=== PATIENT | male | born 1975 | race Caucasian/White ===

== ENCOUNTER 2019-08-10 23:06 | Emergency (ER) | payer OTHER ==
--- NOTE | 2019-08-11 01:19 | ER ---
Nurse's Notes [facility] Name: Bernard Randle Age: 43 yrs Sex: Male : 1975 Arrival Date: 08/10/2019 Time: 23:07 Bed 10 Private MD: Diagnosis: Cellulitis of left lower limb-heel Presentation: 08/10 23:43 Presenting complaint: Patient states: I had metal rods placed in my left foot approx 2 tl1 months ago after falling out of tree and shattering my ankle and foot. My foot is swollen and there is puss coming out of the back of my foot. I was suppose to have them removed but I am unable to make it to [place]. Transition of care: patient was not received from another setting of care. Onset of symptoms was August 10, 2019. Risk Assessment: Do you want to hurt yourself or someone else? Patient reports no desire to harm self or others. Initial Sepsis Screen: Does the patient meet any 2 criteria? No. Patient's initial sepsis screen is negative. Does the patient have a suspected source of infection? No. Patient's initial sepsis screen is negative. Care prior to arrival: None. 23:43 Method Of Arrival: Ambulatory tl1 23:49 Acuity: NESS 4 tl1 Historical: - Allergies: 23:47 No Known Allergies; tl1 - Home Meds: 23:47 None [Active]; tl1 - PMHx: 23:47 None; tl1 - PSHx: 23:47 foot surgery; tl1 - Immunization history:: Adult Immunizations unknown. - Social history:: Smoking status: Patient uses tobacco products, smokes one pack cigarettes per day. Patient uses alcohol, occasionally. Patient/guardian denies using street drugs. - Ebola Screening: : Patient negative for fever greater than or equal to 101.5 degrees Fahrenheit, and additional compatible Ebola Virus Disease symptoms Patient denies exposure to infectious person Patient denies travel to an Ebola-affected area in the 21 days before illness onset. Screenin/26 00:05 Abuse screen: Denies threats or abuse. Nutritional screening: No deficits noted. bb Tuberculosis screening: No symptoms or risk factors identified. Fall Risk None identified. Assessment: 00:05 General: Appears in no apparent distress. uncomfortable, Behavior is calm, cooperative. bb Pain: Complains of pain in right foot and heel of right foot. Neuro: Level of Consciousness is awake, alert, obeys commands, Oriented to person, place, time, situation. Cardiovascular: No deficits noted. Respiratory: Respiratory effort is even, unlabored, Respiratory pattern is regular. GI: No deficits noted. No signs and/or symptoms were reported involving the gastrointestinal system. Derm: Skin is pink, warm \T\ dry. Musculoskeletal: Swelling present in right foot Reports pain in right foot. 01:52 Reassessment: Patient is alert, oriented x 3, equal unlabored respirations, skin bb warm/dry/pink. pt verbalized understanding of and agrees to plan of care discharge instructions given. Vital Signs: 08/10 23:47 BP 119 / 84; Pulse 92; Resp 17; Temp 97.7; Pulse Ox 100% ; Weight 90.72 kg; Height 5 tl1 ft. 11 in. (180.34 cm); Pain 10/10; 08/11 01:54 BP 111 / 68; Pulse 82; Resp 14 S; Temp 97.5(O); Pulse Ox 100% on R/A; bb 08/10 23:47 Body Mass Index 27.89 (90.72 kg, 180.34 cm) tl1 ED Course: 08/10 23:07 Patient arrived in ED. ds1 23:45 Triage completed. tl1 23:49 Arm band placed on right wrist. tl1 23:58 Eagle Sykes MD is Attending Physician. [facility] 08/11 00:05 Patient has correct armband on for positive identification. Call light in reach. bb 00:38 Foot Left 3 View XRAY In Process Unspecified. EDMS 00:44 Sandra Mayo FNP-C is PHCP. snw 01:30 Wound care: to cellulitis located on left heel was cleaned with Betadine, dressed with bb Neosporin, non adherant pad covered with tegaderm and an tammy wrap. 01:52 No provider procedures requiring assistance completed. Patient did not have IV access bb during this emergency room visit. Administered Medications: 01:20 Drug: Bactrim (160 mg-800 mg (DS) 1 tablet Route: PO; bb 01:54 Follow up: Response: No adverse reaction bb 01:30 Drug: Clindamycin 600 mg {Note: split dose right and left gluteus.} Route: IM; Site: bb left gluteus; 01:54 Follow up: Response: No adverse reaction jasmin Outcome: 01:02 Discharge ordered by . lorri 01:55 Discharged to home ambulatory. jasmin 01:55 Condition: stable 01:55 Discharge instructions given to patient, Instructed on discharge instructions, follow up and referral plans. medication usage, wound care, Demonstrated understanding of instructions, follow-up care, medications, wound care. 01:56 Patient left the ED. jasmin Addendum: 08/23/2019 12:06 Addendum: Culture Results: Positive wound culture. Bacteria is resistant to, has i w intermediate sensitivity, or is not tested against prescribed antibiotics. Report given to GENARO for further evaluation and then to immigration paralegal for follow up with patient. Phone call Attempt #1 symptoms not improving, called in Levaquin 750 mg PO daily X 10 days, no refills, per CRISTÓBAL Narvaez. Signatures: Dispatcher [employer] EDMS Eagle Sykes MD MD cha Therrien, Shelly, [employer] SENIOR OFFICER-C [employer] SENIOR OFFICER-CsnGillian Gonzales ds1 Sherine Das, RN RN Vane Griffin, BRIEN RN iw Lisa Cortes RN RN tl1 Corrections: (The following items were deleted from the chart) 08/10 23:46 23:43 Presenting complaint: Patient states: I had metal rods placed in my left foot tl1 approx 2 months ago after falling out of tree and shattering my ankle and foot tl1 23:49 23:43 Acuity: NESS 3 tl1 tl1
--- NOTE | 2019-08-11 01:20 | EDPHYS ---
Physician Documentation [facility] Name: Bernard Randle Age: 43 yrs Sex: Male : 1975 Arrival Date: 08/10/2019 Time: 23:07 Bed 10 Private MD: ED Physician Eagle Sykes HPI: 08/11 00:57 This 43 yrs old Male presents to ER via Ambulatory with complaints of Foot snw Pain - L. 00:59 The patient presents with swelling, wound, wants pins removed from left foot. The snw complaints affect the left heel. Context: The problem was sustained pins placed in [place] per unknown surgeon s/p calcaneus fracture, the patient can partially bear weight, the patient is able to ambulate. Onset: The symptoms/episode began/occurred gradually. Associated signs and symptoms: Pertinent positives: exudate from left heel. Severity of symptoms: At their worst the symptoms were mild, moderate. It is unknown whether or not the patient has had similar symptoms in the past. It is unknown whether or not the patient has recently seen a physician. Historical: - Allergies: 08/10 23:47 No Known Allergies; tl1 - Home Meds: 23:47 None [Active]; tl1 - PMHx: 23:47 None; tl1 - PSHx: 23:47 foot surgery; tl1 - Immunization history:: Adult Immunizations unknown. - Social history:: Smoking status: Patient uses tobacco products, smokes one pack cigarettes per day. Patient uses alcohol, occasionally. Patient/guardian denies using street drugs. - Ebola Screening: : Patient negative for fever greater than or equal to 101.5 degrees Fahrenheit, and additional compatible Ebola Virus Disease symptoms Patient denies exposure to infectious person Patient denies travel to an Ebola-affected area in the 21 days before illness onset. ROS: 08/11 00:56 Constitutional: Negative for fever, chills, and weight loss, Eyes: Negative for injury, snw pain, redness, and discharge, ENT: Negative for injury, pain, and discharge, Neck: Negative for injury, pain, and swelling, Cardiovascular: Negative for chest pain, palpitations, and edema, Respiratory: Negative for shortness of breath, cough, wheezing, and pleuritic chest pain, Abdomen/GI: Negative for abdominal pain, nausea, vomiting, diarrhea, and constipation, Back: Negative for injury and pain, : Negative for injury, bleeding, discharge, and swelling, MS/Extremity: Negative for injury and deformity, Neuro: Negative for headache, weakness, numbness, tingling, and seizure. Skin: Positive for pus coming from left heel. Exam: 00:52 Constitutional: This is a well developed, well nourished patient who is awake, alert, snw and in no acute distress. Head/Face: Normocephalic, atraumatic. Eyes: Pupils equal round and reactive to light, extra-ocular motions intact. Lids and lashes normal. Conjunctiva and sclera are non-icteric and not injected. Cornea within normal limits. Periorbital areas with no swelling, redness, or edema. ENT: Nares patent. No nasal discharge, no septal abnormalities noted. Tympanic membranes are normal and external auditory canals are clear. Oropharynx with no redness, swelling, or masses, exudates, or evidence of obstruction, uvula midline. Mucous membranes moist. Neck: Trachea midline, no thyromegaly or masses palpated, and no cervical lymphadenopathy. Supple, full range of motion without nuchal rigidity, or vertebral point tenderness. No Meningismus. Chest/axilla: Normal chest wall appearance and motion. Nontender with no deformity. No lesions are appreciated. Cardiovascular: Regular rate and rhythm with a normal S1 and S2. No gallops, murmurs, or rubs. Normal PMI, no JVD. No pulse deficits. Respiratory: Lungs have equal breath sounds bilaterally, clear to auscultation and percussion. No rales, rhonchi or wheezes noted. No increased work of breathing, no retractions or nasal flaring. Abdomen/GI: Soft, non-tender, with normal bowel sounds. No distension or tympany. No guarding or rebound. No evidence of tenderness throughout. Back: No spinal tenderness. No costovertebral tenderness. Full range of motion. Neuro: Awake and alert, GCS 15, oriented to person, place, time, and situation. Cranial nerves II-XII grossly intact. Motor strength 5/5 in all extremities. Sensory grossly intact. Cerebellar exam normal. Normal gait. Psych: Awake, alert, with orientation to person, place and time. Behavior, mood, and affect are within normal limits. 00:52 Skin: Appearance: normal except for affected area, Wound recheck: pins placed in calcaneus in [place] post fracture. Pt states 5 have been removed. Supposed to have last two removed but did not return, posterior left heel with small open wound, + exudate. No air noted on x-ray films. 00:56 Musculoskeletal/extremity: Extremities: grossly normal except: noted in the left snw Achilles, medial aspect of left heel, heel of left foot and dorsum of left foot: decreased ROM, swelling, Circulation is intact in all extremities. Sensation intact. Vital Signs: 08/10 23:47 BP 119 / 84; Pulse 92; Resp 17; Temp 97.7; Pulse Ox 100% ; Weight 90.72 kg; Height 5 tl1 ft. 11 in. (180.34 cm); Pain 05/26; 08/11 01:54 BP 111 / 68; Pulse 82; Resp 14 S; Temp 97.5(O); Pulse Ox 100% on R/A; bb 08/10 23:47 Body Mass Index 27.89 (90.72 kg, 180.34 cm) tl1 MDM: 08/10 23:58 Patient medically screened. [facility] 08/11 01:04 Data reviewed: vital signs, nurses notes. Data interpreted: Pulse oximetry: on room air snw is 100 %. Interpretation: normal. Counseling: I had a detailed discussion with the patient and/or guardian regarding: the historical points, exam findings, and any diagnostic results supporting the discharge/admit diagnosis, the presence of at least one elevated blood pressure reading (>120/80) during this emergency department visit, radiology results, the need for outpatient follow up, to return to the emergency department if symptoms worsen or persist or if there are any questions or concerns that arise at home. Special discussion: I discussed in detail with the patient the higher chance of wound infection based on his presenting history. Based on the history and exam findings, there is no indication for further emergent testing or inpatient evaluation. I discussed with the patient/guardian the need to see the general surgeon for further evaluation of the symptoms. I discussed with the patient/guardian the need to see the orthopedic surgeon for further evaluation of the symptoms. 08/11 00:55 Order name: Wound Culture snw 08/11 00:01 Order name: Foot Left 3 View XRAY cholo 08/11 00:55 Order name: Wound Care; Complete Time: 01:52 snw 08/11 00:55 Order name: Wound dressing; Complete Time: 01:52 snw Administered Medications: 01:20 Drug: Bactrim (160 mg-800 mg (DS) 1 tablet Route: PO; bb 01:54 Follow up: Response: No adverse reaction 01:30 Drug: Clindamycin 600 mg {Note: split dose right and left gluteus.} Route: IM; Site: bb left gluteus; 01:54 Follow up: Response: No adverse reaction bb Disposition: 07:53 Co-signature as Attending Physician, Eagle Sykes MD I agree with the assessment and [facility] plan of care. Disposition: 08/11/19 01:02 Discharged to Home. Impression: Cellulitis of left lower limb - heel. - Condition is Stable. - Discharge Instructions: Cellulitis, Adult, Heat Therapy. - Prescriptions for Clindamycin HCl 300 mg Oral Capsule - take 1 capsule by ORAL route every 6 hours for 10 days; 40 capsule. Diclofenac Sodium 75 mg Oral Tablet Sustained Release - take 1 tablet by ORAL route 2 times per day; 30 tablet. - Medication Reconciliation Form, Thank You Letter, Antibiotic Education, Prescription Opioid Use form. - Follow up: Private Physician; When: 2 - 3 days; Reason: Recheck today's complaints, Continuance of care, Re-evaluation by your physician. Follow up: Emergency Department; When: As needed; Reason: Worsening of condition. Signatures: Dispatcher [employer] [facility] Eagle Sykes MD MD cha Therrien, Shelly, KEYMODULE ASSEMBLY MACHINE TENDER-C [employer] ASSEMBLY MACHINE TENDER-Csnw Sherine Das RN RN Lisa Akers RN RN tl1 Corrections: (The following items were deleted from the chart) 00:57 00:52 Constitutional: This is a well developed, well nourished patient who is awake, snw alert, and in no acute distress. Head/Face: Normocephalic, atraumatic. Eyes: Pupils equal round and reactive to light, extra-ocular motions intact. Lids and lashes normal. Conjunctiva and sclera are non-icteric and not injected. Cornea within normal limits. Periorbital areas with no swelling, redness, or edema. ENT: Nares patent. No nasal discharge, no septal abnormalities noted. Tympanic membranes are normal and external auditory canals are clear. Oropharynx with no redness, swelling, or masses, exudates, or evidence of obstruction, uvula midline. Mucous membranes moist. Neck: Trachea midline, no thyromegaly or masses palpated, and no cervical lymphadenopathy. Supple, full range of motion without nuchal rigidity, or vertebral point tenderness. No Meningismus. Chest/axilla: Normal chest wall appearance and motion. Nontender with no deformity. No lesions are appreciated. Cardiovascular: Regular rate and rhythm with a normal S1 and S2. No gallops, murmurs, or rubs. Normal PMI, no JVD. No pulse deficits. Respiratory: Lungs have equal breath sounds bilaterally, clear to auscultation and percussion. No rales, rhonchi or wheezes noted. No increased work of breathing, no retractions or nasal flaring. Abdomen/GI: Soft, non-tender, with normal bowel sounds. No distension or tympany. No guarding or rebound. No evidence of tenderness throughout. Back: No spinal tenderness. No costovertebral tenderness. Full range of motion. Neuro: Awake and alert, GCS 15, oriented to person, place, time, and situation. Cranial nerves II-XII grossly intact. Motor strength 5/5 in all extremities. Sensory grossly intact. Cerebellar exam normal. Normal gait. Psych: Awake, alert, with orientation to person, place and time. Behavior, mood, and affect are within normal limits. snw 00:58 00:56 Skin: Positive for pus coming from heel, snw snw 00:59 00:52 Skin: Appearance: normal except for affected area, Wound recheck: pins placed in snw calcaneus in [place] post fracture. Pt states 5 have been removed. Supposed to have last two removed but did not return, posterior heel with small open wound, + exudate. No air noted on x-ray films. snw 00:59 00:56 Musculoskeletal/extremity: Extremities: grossly normal except: noted in the right snw Achilles, medial aspect of right heel, heel of right foot and dorsum of right foot: decreased ROM, swelling, Circulation is intact in all extremities. Sensation intact. snw 01:56 01:02 08/11/2019 01:02 Discharged to Home. Impression: Cellulitis of left lower limb - bb heel. Condition is Stable. Forms are Medication Reconciliation Form, Thank You Letter, Antibiotic Education, Prescription Opioid Use. Follow up: Private Physician; When: 2 - 3 days; Reason: Recheck today's complaints, Continuance of care, Re-evaluation by your physician. Follow up: Emergency Department; When: As needed; Reason: Worsening of condition. snw
[2019-08-11] MEDS ORDERED: SMZ./TMP. 800/160 MG TABLET ONE (01:28)
[2019-08-11] MEDS ORDERED: CLINDAMYCIN IV 150 MG/ML (4 mL) VIAL ONE (01:28)
[2019-08-11 03:31] VITALS: O2SAT 100
[2019-08-11 03:33] VITALS: BP 111/68; TEMP 97.5
--- NOTE | 2019-08-11 08:18 | RAD REPORT ---
EXAM DESCRIPTION: RAD - Foot Left 3 View - 08/11/2019 12:20 am CLINICAL HISTORY: PAIN Pain and swelling COMPARISON: No comparisons FINDINGS: Diffuse osteopenia is present. Two K-wires are present in the calcaneus. Mild soft tissue swelling is seen along the dorsum of the forefoot.
== END 2019-08-11 01:56 | disposition home or self-care (01) ==
LOC: ER 23:06
DX: L03.116 Cellulitis of left lower limb (principal); F17.210 Nicotine dependence, cigarettes, uncomplicated
CPT/HCPCS: 87070; 87205; 87077 ×2; 87186 ×2; 73630; 96372; 99283; S0077

== ENCOUNTER 2023-04-07 05:09 | Emergency (ER) | payer OTHER, SELFPAY ==
--- OUTSIDE RECORDS SUMMARY | 2023-04-07 05:14 | XMS REPORT | Continuity of Care Document ---
:1975 Author Organization [facility] Address [address] [place] [address] Care Team Providers Name Role Phone Roxana, [place] Dept Of Primary Care Physician [phone] Bob Arenas MD Attending Clinician Chuck Moreno Attending Clinician Dakota Spencer Attending Clinician [phone] NICOLE MENDEZ Attending Clinician Unavailable NICOLE MENDEZ Attending Clinician Unavailable Nicole Mendez DO Attending Clinician Bob Arenas MD Admitting Clinician Payers Payer Name Policy Type Policy Number Effective Date Expiration Date Arianna ruelas [facility] [id number] 2022 00:00:00 Problems Condition Condition Condition Status Onset Resolution Last Treating Co mments Source Name Details Category Date Date Treatment Clinician Date MRSA MRSA Disease Active Univers (methicill (methicill 5-22 it y of in in 00:00: [place] resistant resistant 00 Medi debbie Staphyloco Staphyloco Br anch ccus ccus aureus) aureus) infection infection Overweight Overweight Disease Active U nivers 5-22 ity of 00:00: [place] 00 Medical Branch Normocytic Normocytic Disease Active U nivers anemia anemia 5-22 ity of 00:00: [place] 00 Medical Branch Incarcerat Incarcerat Disease Active U nivers ion ion 5-22 ity of 00:00: [place] 00 Medical Branch Purulent Purulent Disease Active Unive rs inflammati inflammati 5-22 it y of on of skin [place] 00:[place] 00 [place] Chronic Chronic Disease Active Univers osteomyeli osteomyeli -22 it y of tis of tis of 00:00: [place] left tibia left tibia 00 Me dical with with Branch draining draining sinus sinus Infected 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 Added automatic ally from request for surgery [id number] Allergies, Adverse Reactions, Alerts Allergy Allergy Status Severity Reaction(s) Onset Inactive Treating Comm ents Source Name Type Date Date Clinician NO KNOWN Drug Active Univers ALLERGIE Class ity of S [facility] Social History Social Habit Start Date Stop Date Quantity Comments Source Exposure to 2022-12-23 2023-01-02 Not sure [facility] SARS-CoV-2 (event) 00:00:00 15:44:00 [facility] Cigarettes smoked 2023-01-02 2023-01-02 Univers ity of current (pack per 00:00:00 00:00:00 [place] ) - Reported Branch Cigarette 2023-01-02 2023-01-02 University of pack-years 00:00:00 00:00:00 [facility] Tobacco use and 2023-01-02 2023-01-02 Smokeless Universit y of exposure 00:00:00 00:00:00 tobacco non-user Formerly [facility] dical Branch Tobacco Comment 2023-01-02 2023-01-02 Smoked for 10 Univer sity of 00:00:00 00:00:00 years and quit 2 Formerly [facility] dical years ago Branch History of tobacco 2021-05-17 Cigarette Smoker University of use 00:00:00 [facility] Sex Ass[birth year] At [birth year] Universit y of 00:00:00 00:00:00 [facility] Smoking Status Start Date Stop Date Source Tobacco smoking [place] consumption unknown Medical Bran ch Ex-smoker 2023-01-02 00:00:00 2023-01-02 University o f [place] 00:00:00 Medical Branch Medications Ordered Filled Start Stop Current Ordering Indication Dosage Frequency Signature Comments Components Source Medication Medication Date Date Medication? Clinician (SIG) Name Name brexac 2022- Yes 750mg 750 mg, U nivers in HCl 01-09 Oral, BID, ity of (CIPRO) 01:00: 00:59 60 doses, [place] tablet 750 00 :00 First dose Med ical mg on Meg Branch 01/08/23 at 1999, Last dose on Thu02/07/23 at 0800, SID
Re ason for Anti-Infec tive: Documented Infection< br>Documen devyn Infection Site: Bone
Duration of Therapy: Other (see Comments) rifAMPin 2022- Yes 300mg 300 mg, Univ ers (RIFADIN) 01-09 06 Oral, BID, ity of capsule 300 01:00: 00:59 30 doses, [place] mg 00 :00 First dose Medical on Meg Branch 01/08/23 at 1999, Last dose on Thu01/23/23 at 0800, SID
Re ason for Anti-Infec tive: Documented Infection< br>Documen devyn Infection Site: Bone
Duration of Therapy: Other (see Comments) enoxaparin Yes [id number] 30mg inject 0.3 Univers 30 mg/0.3 5-26 mL under ity of mL 00:00: the skin [place] injection 00 every 12 Medica l (twelve) Branch hours.X 1 MON.HG enoxaparin 0 Yes [id number] 30mg inject 0.3 Univers 30 mg/0.3 5-26 mL under ity of mL 00:00: the skin [place] injection 00 every 12 Medica l (twelve) Branch hours.X 1 MON.HG enoxaparin 2022-0 Yes [id number] 30mg inject 0.3 Univers 30 mg/0.3 5-26 mL under ity of mL 00:00: the skin [place] injection 00 every 12 Medica l (twelve) Branch hours.X 1 MON.HG enoxaparin 0 Yes [id number] 30mg inject 0.3 Univers 30 mg/0.3 5-26 mL under ity of mL 00:00: the skin [place] injection 00 every 12 Medica l (twelve) Branch hours.X 1 MON.HG ciprofloxac 0 2022- Yes [id number] 750mg Take 1 Univers in HCl 750 5-26 07-08 tablet by ity of mg tablet 00:00: 04:59 mouth in [place] 00 :00 the Medical morning Branch and 1 tablet in the evening. Do all this for 42 days.HG rifAMPin 0 2022- Yes [id number] 300mg Take 1 Univers 300 mg 5-26 07-08 capsule by ity of capsule 00:00: 04:59 mouth in [place] 00 :00 the Medical morning Branch and 1 capsule in the evening. Do all this for 42 days. ciprofloxac 0 2022- Yes [id number] 750mg Take 1 Univers in HCl 750 5-26 07-08 tablet by ity of mg tablet 00:00: 04:59 mouth in [place] 00 :00 the Medical morning Branch and 1 tablet in the evening. Do all this for 42 days.HG rifAMPin 2022-0 2022- Yes [id number] 300mg Take 1 Univers 300 mg 5-26 07-08 capsule by ity of capsule 00:00: 04:59 mouth in [place] 00 :00 the [facility] morning Branch and 1 capsule in the evening. Do all this for 42 days. ciprofloxac 2022-0 2022- Yes [id number] 750mg Take 1 Univers in HCl 750 5-26 07-08 tablet by ity of mg tablet 00:00: 04:59 mouth in [place] 00 :00 the Medical morning Branch and 1 tablet in the evening. Do all this for 42 days.HG rifAMPin 0 2022- Yes [id number] 300mg Take 1 Univers 300 mg 5-26 07-08 capsule by ity of capsule 00:00: 04:59 mouth in [place] 00 :00 the Medical morning Branch and 1 capsule in the evening. Do all this for 42 days. ciprofloxac 2022-0 2022- Yes [id number] 750mg Take 1 Univers in HCl 750 5-26 07-08 tablet by ity of mg tablet 00:00: 04:59 mouth in [place] 00 :00 the Medical morning Branch and 1 tablet in the evening. Do all this for 42 days.HG rifAMPin 2022-0 2022- Yes [id number] 300mg Take 1 Univers 300 mg 5-26 07-08 capsule by ity of capsule 00:00: 04:59 mouth in [place] 00 :00 the Medical morning Branch and 1 capsule in the evening. Do all this for 42 days. ciprofloxac 2022-0 2022- No [id number] 750mg Take 1 Univers in HCl 750 5-26 06-16 tablet by ity of mg tablet 00:00: 00:00 mouth in [place] 00 :00 the Medical morning Branch and 1 tablet in the evening. Do all this for 42 days.HG enoxaparin 2022-0 2022- No [id number] 30mg inject 0.3 Univers 30 mg/0.3 5-26 06-16 mL under ity o f mL 00:00: 00:00 the skin [place] injection 00 :00 every 12 Medica l ([facility]) Branch hours.X 1 MON.HG rifAMPin 2022-0 2022- No [id number] 300mg Take 1 Univers 300 mg 5-26 06-16 capsule by ity of capsule 00:00: 00:00 mouth in [place] 00 :00 the Medical morning Branch and 1 capsule in the evening. Do all this for 42 days. ciprofloxac 2022-0 2022- No [id number] 750mg Take 1 Univers in HCl 750 5-26 06-16 tablet by ity of mg tablet 00:00: 00:00 mouth in [facility] as 00 :00 the Medical morning Branch and 1 tablet in the evening. Do all this for 42 days.HG enoxaparin 2022-0 2022- No [id number] 30mg inject 0.3 Univers 30 mg/0.3 5-26 06-16 mL under ity o f mL 00:00: 00:00 the skin [place] injection 00 :00 every 12 Medica l (twelve) Branch hours.X 1 MON.HG rifAMPin 3-0 2022- No [id number] 300mg Take 1 Univers 300 mg 5-26 06-16 capsule by ity of capsule 00:00: 00:00 mouth in [place] 00 :00 the Medical morning Branch and 1 capsule in the evening. Do all this for 42 days. docusate 2022- Yes [id number] 100mg Take 1 Univers 100 mg 01-09-11 capsule by ity of capsule 00:00: 04:59 mouth in [place] 00 :00 the Medical morning Branch and 1 capsule in the evening. Do all this for 15 days. methocarbam 2022- Yes [id number] 750mg Take 1 Univers oL 750 mg 01-09-10 tablet by ity of tablet 00:00: 04:59 mouth 3 [place] 00 :00 (three) Medical times Branch daily as needed for Pain (scale 4-6) for up to 14 days. acetaminoph 2022- Yes [id number] 1{tbl} Take 1 U nivers en-codeine 01-09-03 tablet by ity of 300-30 mg 00:00: 04:59 mouth [place] tablet 00 :00 every 6 Medical (six) Branch hours as needed for Pain (scale 7-10) for up to 7 days. Indication s: acute pain vancomycin 2022- No 1250mg 1,250 mg, Univers 1,250 mg in 01-0624 IV ity of NaCl 0.9% 04:30: 23:21 Piggyback, [place] (NS) 250 mL 00 :00 Q8H ABX, 6 Me dical VIAL-MATE doses, Branch IV First dose piggyback (after last modificati on) on 01/05/23 at 2330, Last dose on Thu01/07/23 at 1530, Administer over 90 Minutes, 250 mL
Reas on for Anti-Infec tive: Documented Infection< br>Documen devyn Infection Site: Bone
Du ration of Therapy: 14 days ergocalcife Yes [id number] 50,000 Un suellen rol 5-21 Units, ity of (vitamin 14:00: Oral, [place] d2) 00 QWEEKLY, Medical (CALCIFEROL First dose Br anch ) capsule on Sun 50,000 01/04/23 at Units 0900, Until Discontinu ed, Routine ergocalcife Yes [id number] 50,000 Un suellen rol 5-21 Units, ity of (vitamin 14:00: Oral, [place] d2) 00 QWEEKLY, Medical (CALCIFEROL First dose Br anch ) capsule on Sun 50,000 01/04/23 at Units 0900, Until Discontinu ed, Routine sennosides- 2022-0 Yes 1{tbl} 1 tablet, Univers docusate 5-20 Oral, BID, ity o f sodium 01:00: First dose [place] (SENOKOT-S) 00 on Thu Medica l 8.6-50 mg 01/02/23 at Bran ch per tablet 1999, 1 tablet Until Discontinu ed, Routine sennosides- 2022-0 Yes 1{tbl} 1 tablet, Univers docusate 5-20 Oral, BID, ity o f sodium 01:00: First dose [place] (SENOKOT-S) 00 on Thu Medica l 8.6-50 mg 01/02/23 at Bran ch per tablet 1999, 1 tablet Until Discontinu ed, Routine enoxaparin 2022- No 30mg 30 mg, Univ ers (LOVENOX) 01-03 Subcutaneo ity of injection 01:00: 00:59 us, Q12H, [place] 30 mg 00 :00 56 doses, Medical First dose Branch on Thu01/02/23 at 2000, Last dose on Thu01/30/23 at 0800, Routine enoxaparin 2022- No 30mg 30 mg, Univ ers (LOVENOX) 01-03 Subcutaneo ity of injection 01:00: 00:59 us, Q12H, [place] 30 mg 00 :00 56 doses, Medical First dose Branch on Thu01/02/23 at 1999, Last dose on Thu01/30/23 at 0800, Routine morpHINE (4 0 Yes 4mg 4 mg, Slow Univers mg/mL) 5-19 IV Push, ity of injection 4 19:36: Q4HPRN, [place] mg 58 Starting Medical on Thu01/02/23 at 1436, Until Discontinu ed, Routine, For pain unrelieved by oral medication s, or if patient is unable to tolerate oral pain medication . morpHINE (4 0 Yes 4mg 4 mg, Slow Univers mg/mL) 5-19 IV Push, ity of injection 4 19:36: Q4HPRN, [place] mg 58 Starting Medical on Thu/19/23 at 1436, Until Discontinu ed, Routine, For pain unrelieved by oral medication s, or if patient is unable to tolerate oral pain medication . traMADoL 3-0 Yes 50mg 50 mg, Univers (ULTRAM) 5-19 Oral, ity of tablet 50 19:36: Q6HPRN, [place] mg 53 Starting Medical on Fri Branch 01/02/23 at 1436, Until Discontinu ed, Routine, Pain (scale 4-6) traMADoL 3-0 Yes 50mg 50 mg, Univers (ULTRAM) 5-19 Oral, ity of tablet 50 19:36: Q6HPRN, [place] mg 53 Starting Medical on Fri Branch 01/02/23 at 1436, Until Discontinu ed, Routine, Pain (scale 4-6) HYDROcodone 3-0 Yes 1{tbl} 1 tablet, Univers -acetaminop 5-19 Oral, ity of hen (NORCO) 19:36: Q4HPRN, [place] 10-325 mg 51 Starting Medica l tablet 1 on Fri Branch tablet 01/02/23 at 1436, Until Discontinu ed, Routine, Pain (scale 7-10) HYDROcodone 3-0 Yes 1{tbl} 1 tablet, Univers -acetaminop 5-19 Oral, ity of hen (NORCO) 19:36: Q4HPRN, [place] 10-325 mg 51 Starting Medica l tablet 1 on Fri Branch tablet 01/02/23 at 1436, Until Discontinu ed, Routine, Pain (scale 7-10) acetaminoph 3-0 Yes 650mg 650 mg, Un suellen en 01-02 Oral, ity of (TYLENOL) 19:36: Q6HPRN, [place] tablet 650 41 Starting Medic al mg on Fri Branch 01/02/23 at 1436, Until Discontinu ed, Routine, Pain (scale 1-3), Pain Scale 1-3 Or Headache acetaminoph 2023-0 Yes 650mg 650 mg, Un suellen en 5-19 Oral, ity of (TYLENOL) 19:36: Q6HPRN, [place] tablet 650 41 Starting Medic al mg on Fri Branch 01/02/23 at 1436, Until Discontinu ed, Routine, Pain (scale 1-3), Pain Scale 1-3 Or Headache methocarbam 2023-0 Yes 500mg 500 mg, Un suellen oL 5-19 Oral, ity of (ROBAXIN) 19:36: QIDPRN, [place] tablet 500 28 Starting Medic al mg on Thu Branch 01/02/23 at 1436, Until Discontinu ed, Routine, Muscle Spasms methocarbam 2023-0 Yes 500mg 500 mg, Un suellen oL 5-19 Oral, ity of (ROBAXIN) 19:36: QIDPRN, [place] tablet 500 28 Starting Medic al mg on Thu Branch 01/02/23 at 1436, Until Discontinu ed, Routine, Muscle Spasms ondansetron 3-0 Yes 4mg 4 mg, Slow Univers (ZOFRAN 5-19 IV Push, ity of (PF)) 19:34: Q6HPRN, [place] injection 4 20 Starting Medi debbie mg on Thu Branch 01/02/23 at 1434, Until Discontinu ed, Routine, Nausea and Vomiting (N/V) ondansetron 3-0 Yes 4mg 4 mg, Slow Univers (ZOFRAN 5-19 IV Push, ity of (PF)) 19:34: Q6HPRN, [place] injection 4 20 Starting Medi debbie mg on Thu Branch 01/02/23 at 1434, Until Discontinu ed, Routine, Nausea and Vomiting (N/V) lactated 2023-0 Yes 1000mL at 75 Univer s ringers IV 5-19 mL/hr, ity of infusion 17:30: 1,000 mL, [place] 1,000 mL 00 IV Medical Infusion, Branch CONTINUOUS , Starting on Thu01/02/23 at 1230, Until Discontinu ed, Routine, PACU lactated 2023-0 Yes 1000mL at 75 Univer s ringers IV 5-19 mL/hr, ity of infusion 17:30: 1,000 mL, [place] 1,000 mL 00 IV Medical Infusion, Branch CONTINUOUS , Starting on Thu01/02/23 at 1230, Until Discontinu ed, Routine, PACU HYDROmorphO 2023-0 2023- No .2mg 0.2 mg, Un suellen ne 5- 05-19 Slow IV ity of (DILAUDID) 17:24: 20:24 Push, [place] injection 54 :14 Q5MIN PRN, Medi debbie 0.2 mg 10 doses, Branch Starting on Thu01/02/23 at 1224, Until Thu01/02/23 at 1524, Routine, Pain (scale 7-10), PACU
Us e approved by (Faculty): PAIN SERVICE ondansetron No 4mg 4 mg, Slow Univers (ZOFRAN 01-02 IV Push, ity of (PF)) 17:24: 18:37 PRN, 1 [place] injection 4 54 :00 dose, Medical mg Starting Branch on Thu01/02/23 at 1224, Until Discontinu ed, Routine, Nausea and Vomiting (N/V), PACU iohexol 2022- No [id number] 100mL 100 mL, Univers (OMNIPAQUE 12-27 Intravenou it y of 350 08:00: 07:46 s, ONCE, 1 [place] BULK-100 00 :00 dose, On Medical mL) Sat Branch injection 12/27/22 at 100 mL 0300, Routine metroNIDAZO No 2000mg 2,000 mg, Univers LE (FLAGYL) 05-11 Oral, ONCE i ty of tablet 18:00: 18:13 NOW, 1 [place] 2,000 mg 00 :00 dose, On Medical [place] Branch 05/11/22 at 1300, SID
Re ason for Anti-Infec tive: Empiric Non-Surgic al Prophylaxi s
Durat ion of therapy: 72 hours cefTRIAXone No 500mg 500 mg, U nivers (ROCEPHIN) 05-11 Intramuscu it y of injection 18:00: 18:12 lar, ONCE [place] 500 mg 00 :00 NOW, 1 Medical dose, On Branch [place] 05/11/22 at 1300, SID
Re ason for Anti-Infec tive: Empiric Non-Surgic al Prophylaxi s
Durat ion of therapy: 72 hours ondansetron No 4mg 4 mg, Univ ers (ZOFRAN-ODT 05-11 Oral, ONCE i ty of ) 18:00: 18:13 NOW, 1 [place] disintegrat 00 :00 dose, On Medi debbie ing tablet Sun Branch 4 mg 05/11/22 at 1300, SID doxycycline 2021-0 Yes [id number] 100mg Take 1 Univers hyclate 100 9-25 capsule by it y of mg capsule 00:00: mouth in [place] 00 the Medical morning Branch and 1 capsule in the evening. proMETHazin 2-0 Yes [id number] 12.5mg Take 1 Univers e 12.5 mg 9-25 tablet by ity o f tablet 00:00: mouth [place] 00 every 6 Medical (six) Branch hours as needed for Nausea and Vomiting (N/V). doxycycline 2021-0 Yes [id number] 100mg Take 1 Univers hyclate 100 9-25 capsule by it y of mg capsule 00:00: mouth in [place] 00 the Medical morning Branch and 1 capsule in the evening. proMETHazin 2021-0 Yes [id number] 12.5mg Take 1 Univers e 12.5 mg 9-25 tablet by ity o f tablet 00:00: mouth [place] 00 every 6 Medical (six) Branch hours as needed for Nausea and Vomiting (N/V). doxycycline 2021-0 Yes [id number] 100mg Take 1 Univers hyclate 100 9-25 capsule by it y of mg capsule 00:00: mouth in [place] 00 the Medical morning Branch and 1 capsule in the evening. proMETHazin 2-0 Yes [id number] 12.5mg Take 1 Univers e 12.5 mg 9-25 tablet by ity o f tablet 00:00: mouth [place] 00 every 6 Medical (six) Branch hours as needed for Nausea and Vomiting (N/V). doxycycline 2-0 Yes [id number] 100mg Take 1 Univers hyclate 100 9-25 capsule by it y of mg capsule 00:00: mouth in [place] 00 the Medical morning Branch and 1 capsule in the evening. proMETHazin 2022-0 Yes [id number] 12.5mg Take 1 Univers e 12.5 mg 9-25 tablet by ity o f tablet 00:00: mouth [place] 00 every 6 Medical (six) Branch hours as needed for Nausea and Vomiting (N/V). doxycycline 2022-0 Yes [id number] 100mg Take 1 Univers hyclate 100 9-25 capsule by it y of mg capsule 00:00: mouth in [place] 00 the Medical morning Branch and 1 capsule in the evening. proMETHazin Yes [id number] 12.5mg Take 1 Univers e 12.5 mg 9-25 tablet by ity o f tablet 00:00: mouth [place] 00 every 6 Medical (six) Branch hours as needed for Nausea and Vomiting (N/V). doxycycline 2022- No [id number] 100mg Take 1 Univers hyclate 100 -25 -26 capsule by i ty of mg capsule 00:00: 00:00 mouth in [place] 00 :00 the Medical morning Branch and 1 capsule in the evening. proMETHazin 2022- No [id number] 12.5mg Take 1 Univers e 12.5 mg -25 -26 tablet by ity of tablet 00:00: 00:00 mouth [place] 00 :00 every 6 Medical (six) Branch hours as needed for Nausea and Vomiting (N/V). Vital Signs Vital Name Observation Time Observation Value Comments Source Body height 2023-01-29 17:59:00 180.3 cm [facility] Body weight 2023-01-29 17:59:00 93.441 kg [facility] BMI 2023-01-29 17:59:00 28.73 kg/m2 [facility] Systolic blood 2023-01-09 16:51:00 110 mm[facility]Hg] [facility] Diastolic blood 2023-01-09 16:51:00 65 mm[Hg] Unive [facility] Heart rate 2023-01-09 16:51:00 85 /min [facility] Body temperature 2023-01-09 16:51:00 36.78 Carina [facility] [place] [place] Respiratory rate 2023-01-09 16:51:00 18 /min [facility] Oxygen saturation in 2023-01-09 16:51:00 95 /min [facility] Arterial blood by [facility] [place] Pulse oximetry Branch Body height 2023-01-02 20:40:00 180.3 cm [facility] Body weight 2023-01-02 20:40:00 90.719 kg [facility] BMI 2023-01-02 20:40:00 27.89 kg/m2 [facility] Systolic blood 2023-01-02 19:00:00 101 mm[Hg] Univer sity of pressure [facility] Diastolic blood 2023-01-02 19:00:00 67 mm[Hg] Unive rsity of pressure [facility] Respiratory rate 2023-01-02 19:00:00 15 /min Univ ersity of [facility] Oxygen saturation in 2023-01-02 19:00:00 92 /min University of Arterial blood by [facility] [place] Pulse oximetry Branch Body temperature 2023-01-02 18:15:00 36.5 Carina Univ ersity of [facility] Heart rate 2023-01-02 11:00:00 82 /min Universi ty of [facility] Body height 2022-12-24 14:39:00 180.3 cm Universi ty of [facility] Body weight 2022-12-24 14:39:00 90.719 kg Universi ty [facility] [place] [facility] BMI 2022-12-24 14:39:00 27.89 kg/m2 Universi ty [facility] [place] [facility] Systolic blood 2022-05-11 22:52:00 133 mm[Hg] Univer sity of [facility] Diastolic blood 2022-05-11 22:52:00 97 mm[Hg] Unive rsity of [facility] Heart rate 2022-05-11 22:52:00 83 /min Universi ty of [facility] Body temperature 2022-05-11 22:52:00 36.5 Carina [facility] Respiratory rate 2022-05-11 22:52:00 16 /min Univ ersity of [facility] Oxygen saturation in 2022-05-11 22:52:00 98 /min University of Arterial blood by [facility] [place] Pulse oximetry Branch Body weight 2022-05-11 17:19:00 90.719 kg Universi [facility] Procedures Procedure Date / Time Performing Clinician Source Performed C-REACTIVE PROTEIN 2023-01-08 08:43:00 Saul Arnold [facility] SEDIMENTATION RATE 2023-01-08 08:43:00 Saul Arnold [facility] COMP. METABOLIC PANEL 2023-01-07 23:01:00 Saul Arnold [facility] ([id number]) [facility] CBC WITH DIFF 2023-01-07 23:01:00 Saul Arnold [place] o f [facility] GC & CHLAMYDIA AMPLIFIED 2023-01-07 18:37:00 Nicole Saucedo [facility] ASSAY [facility] HEPATITIS B SURFACE 2023-01-07 13:55:00 Javier [facility] ANTIBODY [facility] HEPATITIS B SURFACE 2023-01-07 13:55:00 Javier [facility] ANTIGEN [facility] Branch HCV ANTIBODY 2023-01-07 13:55:00 Nicole Saucedo [facility] [place] [facility] HBC ANTIBODY (IGM & IGG) 2023-01-07 13:55[facility] (IGG AND 2023-01-07 13:55:00 Javier [facility] IGM) [facility] HIV 1/2 AG-AB WITH REFLEX 2023-01-07 13:55:00 Nicole Saucedo [facility] SYPHILIS IGG/IGM 2023-01-07 13:55:00 Nicole Saucedo [facility] [place] [facility] VANCOMYCIN TROUGH 2023-01-07 04:55:00 [facility] 2023-01-04 12:04:00 Gabriel Lennon [facility] (NA, K, CL, CO2, GLUCOSE, Medica l Branch BUN, CREATININE, CA) CBC WITHOUT DIFF 2023-01-04 12:04:00 Gabriel Lennon [facility] [place] [facility] BASIC METABOLIC PANEL 2023-01-04 12:04:00 Gabriel Lennon [facility] (NA, K, CL, CO2, GLUCOSE, Medica l Branch BUN, CREATININE, CA) CBC WITHOUT DIFF 2023-01-04 12:04:00 Gabriel Lennon [facility] [place] [facility] VANCOMYCIN TROUGH 2023-01-04 08:49:00 Gurinder [facility] VANCOMYCIN TROUGH 2023-01-04 08:49:00 Gurinder [facility] BASIC METABOLIC PANEL 2023-01-03 09:06:00 Fausto [facility] (NA, K, CL, CO2, GLUCOSE, Medica l Branch BUN, CREATININE, CA) CBC WITH DIFF 2023-01-03 09:06:00 Fausto [facility] BASIC METABOLIC PANEL 2023-01-03 09:06:00 Fausto [facility] (NA, K, CL, CO2, GLUCOSE, Medica l Branch BUN, CREATININE, CA) CBC WITH DIFF 2023-01-03 09:06:00 Gurinder [facility] MRSA / MSSA SCREEN BY 2023-01-02 20:54:00 Gurinder [facility], [facility] MRSA / MSSA SCREEN BY 2023-01-02 20:54:00 Gurinder [facility] PCR, [facility] FL TIME OR 2023-01-02 17:56:00 Arenas, Bob Hodges [facility] (NON-REPORTABLE) [facility] [place] TIME OR 2023-01-02 17:56:00 Arenas, Bob Hodges [facility] (NON-REPORTABLE) [facility] FUNGUS (ROUTINE) CULTURE 2023-01-02 17:11:00 Arenas, Bob A Uni versity [facility] [place] [facility] TISSUE 2023-01-02 17:11:00 Arenas, Bob A [facility] CULTURE(AEROBIC/ANAEROBIC Medica l Branch ) FUNGUS (ROUTINE) CULTURE 2023-01-02 17:11:00 Arenas, Bob [facility] [place] [place] [facility] 2023-01-02 17:11:00 Arenas, Bob A [facility] CULTURE(AEROBIC/ANAEROBIC Medica l Branch ) FUNGUS (ROUTINE) CULTURE 2023-01-02 17:09:00 Arenas, Bob A Uni versity of [facility] TISSUE 2023-01-02 17:09:00 Arenas, Bob A [facility] CULTURE(AEROBIC/ANAEROBIC Medica l Branch ) FUNGUS (ROUTINE) CULTURE 2023-01-02 17:09:00 Arenas, Bob A Uni versity of [facility] TISSUE 2023-01-02 17:09:00 Arenas, Bob A [facility] CULTURE(AEROBIC/ANAEROBIC Medica l Branch ) TIBIAL INTRAMEDULLARY 2023-01-02 15:10:00 Arenas, Bob [facility] NAIL REMOVAL [facility] ANTIBIOTIC BEAD PLACEMENT 2023-01-02 15:10:00 Arenas, Bob A [facility] TIBIAL INTRAMEDULLARY 2023-01-02 15:10:00 Arenas, Bob A [facility]iver [facility] NAIL REMOVAL [facility] ANTIBIOTIC BEAD PLACEMENT 2023-01-02 15:10:00 Arenas, Bob A [facility] [place] [facility] LAB ONLY COVID 2022-12-28 22:38:00 Sammy Barragan [facility] INTERPRETATION [facility] COVID-19 (ID NOW RAPID 2022-12-28 22:38:00 Sammy Barragan [facility] TEST[facility]) Medical Branch LAB ONLY COVID 2022-12-28 22:38:00 Sammy Barragan [facility] INTERPRETATION [facility] COVID-19 (ID NOW RAPID 2022-12-28 22:38:00 Sammy Barragan [facility] Medical Branch CT TIBIA FIBULA LEFT W 2022-12-27 08:03:02 Eduardo Ocampo [facility] CONTRAST [facility] CT TIBIA FIBULA LEFT W 2022-12-27 08:03:02 TerrenceEduardo [facility] C-REACTIVE PROTEIN 2022-12-26 23:39:00 [facility] COMP. METABOLIC PANEL 2022-12-26 23:39:00 [facility] ([id number]) [facility] CBC WITHOUT DIFF 2022-12-26 23:39:00 [facility] SEDIMENTATION RATE 2022-12-26 23:39:00 [facility] C-REACTIVE PROTEIN 2022-12-26 23:39:00 [facility] COMP. METABOLIC PANEL 2022-12-26 23:39:00 [facility] ([id number]) [facility] CBC WITHOUT DIFF 2022-12-26 23:39:00 [facility] SEDIMENTATION RATE 2022-12-26 23:39:00 [facility] VITAMIN D, 25-OH 2022-12-26 23:38:00 [facility] VITAMIN D, 25-OH 2022-12-26 23:38:00 Eduardo Ocampo [facility] LAB ONLY COVID 2022-12-24 15:29:00 Sammy Barragan [facility] COVID-19 (ID NOW RAPID 2022-12-24 15:29:00 Sammy Barragan [facility] Medical Branch LAB ONLY COVID 2022-12-24 15:29:00 Sammy Barragan [facility] COVID-19 (ID NOW RAPID 2022-12-24 15:29:00 Sammy Barragan [facility]) Medical Branch XR CHEST 2 VW 2022-09-19 16:08:05 Chuck [facility] XR KNEE 3 VW RIGHT 2022-09-16 16:59:46 Dakota Spencer [facility] XR TIBIA FIBULA 2 VW LEFT 2022-09-16 14:35:22 Emmy Spencer [facility] COVID-19 (ID NOW RAPID 2022-05-11 18:10:00 Nicole Mendez [facility]) Medical Branch LAB ONLY COVID 2022-05-11 18:10:00 Nicole Mendez [facility] Encounters Start End Encounter Admission Attending Care Care Encounter Source Date/Time Date/Time Type Type Clinicians Facility Department ID 2019-06-07 Outpatient [facility] [address] [facility] 16:23:18 2019-05-18 Outpatient [facility] [address] [facility] 10:52:09 2023-01-29 2023-01-30 [facility] [id number] Univers 08:00:00 00:52:00 Encounter Bob A HOSP[facility] [place]1.13.[id number] [address] Branch 2023-01-29 2023-01-29 [facility] [id number] Univers 09:51:13 23:59:00 Encounter Bob A HOSP[facility] [place]1.13.[place] [id number] [facility] 807 Branch 2023-01-29 2023-01-29 Office ArenasASHLEY mc [id number] Univers 09:00:00 15:09:02 Visit Bob A HOSPITAL 350.1.13.10 [place] [id number] [facility] 212 Branch 2022-12-24 2023-01-09 Hospital ASHLEY Arenas [id number] Univers 08:00:00 14:22:00 Encounter Bob A [facility] 350.1.13.10 [place] [id number] [facility] 008 Branch 2023-01-02 2023-01-02 Surgery ArenasHERMINIA mc [id number] Univers 11:00:00 14:00:00 Bob A MARSHA 350.1.13.10 it y of HOSPITAL 4.2.7.2.686 S[place]umar as [id number] [facility] 103 Branch 2022-09-19 2022-09-19 [facility] RIKI MorenoELL [id number] Univers 10:01:20 23:59:00 Encounter Chuck [facility] 350.1.13.10 [place] [id number] [facility] 807 Branch 2022-09-16 2022-09-16 [facility] [id number] Univers 10:50:00 23:59:00 Encounter Dakota [facility] 350.1.13.10 ity of [place] [id number] [facility] debbie 807 Branch 2022-09-16 2022-09-16 [facility]MANA amanda [id number] Univers 08:10:21 10:49:00 Encounter Dakota [facility] 350.1.13.10 [place] [id number] [facility] 807 Branch 2022-05-11 2022-05-11 Emergency [facility] 1 [id number] Univers 12:23:00 18:00:00 NICOLE MENDEZ ity of [facility] 2022-05-11 2022-05-11 Emergency Vanessa, TRAUMA [id number] Univers 12:23:00 18:00:00 [facility] 350.1.13.10 [place] [id number] [facility] 014 Branch 2019-04-28 2019-04-28 Outpatient [facility] [address] [facility] 13:30:00 13:30:00 2019-04-14 2019-04-14 Outpatient [facility] [address] [facility] 11:03:00 11:03:00 Results Test Description Test Time Test Comments Results Result Comments Source C-REACTIVE PROTEIN 2023-01-08 17:04:58 Test Item Value Reference Range Interpretation Comme nts CRP (test code = 2240023606) 16.4 mg/dL <=0.8 H Lab Interpretation (test code = 06817-1) [facility]normal [facility] [id number] 09:10:15 Test Item Value Reference Range Interpretation Comments ESR (test code = 120 See_Comment H [Automated message] 22205-1) The system [employer] h generated this result transmitted ref erence range: 2 - 30 m m/HR. The reference r elsi was not used to interpret this result as normal/abnor mal. Lab Interpretation (test Abnormal code = 58632-3) [facility] WITH [id number] 23:17:45 Test Item Value Reference Range Interpretation Comments WBC (test code = 7.20 See_Comment [Automated 1290-2) message] The sy stem which generated this result transmitted reference range : 4.20 - 10.70 10*3/?L. The reference range was not used to interpret this result as normal/abnormal . RBC (test code = 3.36 See_Comment L [Automated 669-8) message] The sy stem which generated this result transmitted reference range : 4.26 - 5.52 10*6/?L. The reference range was not used to interpret this result as normal/abnormal . HGB (test code = 9.2 g/dL 12.2-16.4 L 718-7) HCT (test code = 29.7 % 38.4-49.3 L 4544-3) MCV (test code = 88.4 fL 81.7-95.6 787-2) MCH (test code = 27.4 pg 26.1-32.7 785-6) MCHC (test code = 31.0 g/dL 31.2-35.0 L 786-4) RDW-SD (test code = 46.0 fL 38.5-51.6 15860-6) RDW-CV (test code = 14.2 % 12.1-15.4 788-0) PLT (test code = 346 See_Comment H [Automated 777-3) message] The sy stem which generated this result transmitted reference range : 150 - 328 10*3/ ?L. The reference r elsi was not used to interpret this result as normal/abnormal . MPV (test code = 9.2 fL 9.8-13.0 L 89950-2) NRBC/100 WBC (test 0.0 See_Comment [Automat ed code = 0574205862) message] The system which generated this result transmitted reference range : 0.0 - 10.0 /100 WBCs. The refer ence range was not u sed to interpret th is result as normal/abnormal . NRBC x10^3 (test code See_Comment [Auto mated = 6073032501) message] The s ystem which generated this result transmitted reference range : 10*3/?L. The reference range was not used to interpret this result as normal/abnormal . GRAN MAT (NEUT) % 46.1 % (test code = 770-8) IMM GRAN % (test code 0.10 % = 8203105743) LYMPH % (test code = 44.3 % 736-9) MONO % (test code = 5.7 % 5905-5) EOS % (test code = 3.2 % 713-8) BASO % (test code = 0.6 % 706-2) GRAN MAT x10^3(ANC) 3.32 10*3/uL 1.99-6.95 (test code = 2217748464) IMM GRAN x10^3 (test 0.00-0.06 code = 7414823399) LYMPH x10^3 (test code 3.19 10*3/uL 1.09-3.23 = 731-0) MONO x10^3 (test code 0.41 10*3/uL 0.36-1.02 = 742-7) EOS x10^3 (test code = 0.23 10*3/uL 0.06-0.53 711-2) BASO x10^3 (test code 0.04 10*3/uL 0.01-0.09 = 704-7) Lab Interpretation Abnormal (test code = 43204-4) [facility] CULTURE(AEROBIC/ANAEROBIC)2023-01-05 17:41:15 Test Item Value Reference Range Interpretation Comments TISSUE CULTURE 1+ Staphylococcus For susc eptibility (test code = aureus results, refer to ) culture # - [id number] Gram stain Numerous PMNs or (test code = Mononuclear cells 664-3) observed [facility] CULTURE(AEROBIC/ANAEROBIC)2023-01-05 17:41:15 Test Item Value Reference Range Interpretation Comments TISSUE CULTURE 1+ Staphylococcus For susc eptibility (test code = aureus results, refer to ) culture # - [id number] Gram stain Numerous PMNs or (test code = Mononuclear cells 664-3) [facility] - Draw within 30 minutes prior to 4TH dose.2023-01-04 09:56:53 Test Item Value Reference Range Interpretation Comments VANCO TROUGH (test code 8.7 ug/mL 10.0-20.0 L = 8304053218) MARYA (test code = MARYA) Toxic Range: ?>20 ug/mL 15-20 ug/mL is recommended for severe infection or when Vancomycin MAKSIM is greater than or equal to 2. Lab Interpretation (test Abnormal code = 99117-8) [facility] - Draw within 30 minutes prior to 4TH dose.2023-01-04 09:56:53 Test Item Value Reference Range Interpretation Comments VANCO TROUGH (test code 8.7 ug/mL 10.0-20.0 L = 9683982393) MARYA (test code = MARYA) Toxic Range: ?>20 ug/mL 15-20 ug/mL is recommended for severe infection or when Vancomycin MAKSIM is greater than or equal to 2. Lab Interpretation (test Abnormal code = 10826-5) [facility] METABOLIC PANEL (NA, K, CL, CO2, GLUCOSE, BUN, CREATININE, CA)2023-01-03 10:00:20 Test Item Value Reference Range Interpretation Comments NA (test code = 141 mmol/L 135-145 1777870195) K (test code = 4.2 mmol/L 3.5-5.0 3021624609) CL (test code = 102 mmol/L 98-108 6634667563) CO2 TOTAL (test code = 29 mmol/L 23-31 6000100201) AGAP (test code = 10 2-16 4389262914) BUN (test code = 18 mg/dL 7-23 6766774847) GLUCOSE (test code = 102 mg/dL 70-110 3286626440) CREATININE (test code = 0.86 mg/dL 0.60-1.25 5679511458) CALCIUM (test code = 8.3 mg/dL 8.6-10.6 L 2220004809) eGFR (test code = 94.5 mL/min/1.73m2 0620427507) MARYA (test code = MARYA) Association of Glomerular Filtration Rate (GFR) and Staging of Kidney Disease* + --+ --+ ------+| GFR (mL/min/1.73 m2) ?| With Kidney Damage ?| ?Without Kidney Damage+ --------+ --------+ +| ?>90 ?| ?Stage one ?| ? Normal ?+ ---+ ---+ -------+| ?60-89 ?| ?Stage two ?| ? Decreased GFR ? + --+ --+ ------+| ?30-59 ?| ?Stage three ?| ? Stage three ? + --+ --+ ------+| ?15-29 ?| ?Stage four ? | ? Stage four ?+ ---+ ---+ -------+| ?<15 (or dialysis) ? ?| ?Stage five ? | ? Stage five ?+ ---+ ---+ -------+ *Each stage assumes the associated GFR level has been in effect for at least three months. ?Stages 1 to 5, with or without kidney disease, indicate chronic kidney disease. Notes: Determination of stages one and two (with eGFR >59mL/min/1.73 m2) requires estimation of kidney damage for at least three months as defined by structural or functional abnormalities of the kidney, manifested by either:Pathological abnormalities or Markers of kidney damage (including abnormalities in the composition of the blood or urine or abnormalities in imaging tests). Lab Interpretation Abnormal (test code = 25845-7) [facility] METABOLIC PANEL (NA, K, CL, CO2, GLUCOSE, BUN, CREATININE, CA)2023-01-03 10:00:20 Test Item Value Reference Range Interpretation Comments NA (test code = 141 mmol/L 135-145 1053801698) K (test code = 4.2 mmol/L 3.5-5.0 3201023695) CL (test code = 102 mmol/L 98-108 7435303879) CO2 TOTAL (test code = 29 mmol/L 23-31 4575752154) AGAP (test code = 10 2-16 4755822700) BUN (test code = 18 mg/dL 7-23 2372219217) GLUCOSE (test code = 102 mg/dL 70-110 2289281578) CREATININE (test code = 0.86 mg/dL 0.60-1.25 0197047379) CALCIUM (test code = 8.3 mg/dL 8.6-10.6 L 6265759938) eGFR (test code = 94.5 mL/min/1.73m2 1018590441) MARYA (test code = MARYA) Association of Glomerular Filtration Rate (GFR) and Staging of Kidney Disease* + --+ --+ ------+| GFR (mL/min/1.73 m2) ?| With Kidney Damage ?| ?Without Kidney Damage+ --------+ --------+ +| ?>90 ?| ?Stage one ?| ? Normal ?+ ---+ ---+ -------+| ?60-89 ?| ?Stage two ?| ? Decreased GFR ? + --+ --+ ------+| ?30-59 ?| ?Stage three ?| ? Stage three ? + --+ --+ ------+| ?15-29 ?| ?Stage four ? | ? Stage four ?+ ---+ ---+ -------+| ?<15 (or dialysis) ? ?| ?Stage five ? | ? Stage five ?+ ---+ ---+ -------+ *Each stage assumes the associated GFR level has been in effect for at least three months. ?Stages 1 to 5, with or without kidney disease, indicate chronic kidney disease. Notes: Determination of stages one and two (with eGFR >59mL/min/1.73 m2) requires estimation of kidney damage for at least three months as defined by structural or functional abnormalities of the kidney, manifested by either:Pathological abnormalities or Markers of kidney damage (including abnormalities in the composition of the blood or urine or abnormalities in imaging tests). Lab Interpretation Abnormal (test code = 68786-8) [facility] with [id number] 09:38:20 Test Item Value Reference Range Interpretation Comments WBC (test code = 8.51 See_Comment [Automated 3990-2) message] The sy stem which generated this result transmitted reference range : 4.20 - 10.70 10*3/?L. The reference range was not used to interpret this result as normal/abnormal . RBC (test code = 3.44 See_Comment L [Automated 839-8) message] The sy stem which generated this result transmitted reference range : 4.26 - 5.52 10*6/?L. The reference range was not used to interpret this result as normal/abnormal . HGB (test code = 9.5 g/dL 12.2-16.4 L 718-7) HCT (test code = 30.6 % 38.4-49.3 L 4544-3) MCV (test code = 89.0 fL 81.7-95.6 787-2) MCH (test code = 27.6 pg 26.1-32.7 785-6) MCHC (test code = 31.0 g/dL 31.2-35.0 L 786-4) RDW-SD (test code = 44.8 fL 38.5-51.6 13777-6) RDW-CV (test code = 13.9 % 12.1-15.4 788-0) PLT (test code = 286 See_Comment [Automated 777-3) message] The sy stem which generated this result transmitted reference range : 150 - 328 10*3/ ?L. The reference r elsi was not used to interpret this result as normal/abnormal . MPV (test code = 9.5 fL 9.8-13.0 L 49290-3) NRBC/100 WBC (test 0.0 See_Comment [Automat ed code = 8570498086) message] The system which generated this result transmitted reference range : 0.0 - 10.0 /100 WBCs. The refer ence range was not u sed to interpret th is result as normal/abnormal . NRBC x10^3 (test code See_Comment [Auto mated = 6903689867) message] The s ystem which generated this result transmitted reference range : 10*3/?L. The reference range was not used to interpret this result as normal/abnormal . GRAN MAT (NEUT) % 57.2 % (test code = 770-8) IMM GRAN % (test code 0.40 % = 5750708397) LYMPH % (test code = 34.2 % 736-9) MONO % (test code = 7.1 % 5905-5) EOS % (test code = 0.7 % 713-8) BASO % (test code = 0.4 % 706-2) GRAN MAT x10^3(ANC) 4.88 10*3/uL 1.99-6.95 (test code = 4562159765) IMM GRAN x10^3 (test 0.03 10*3/uL 0.00-0.06 code = 3629949710) LYMPH x10^3 (test code 2.91 10*3/uL 1.09-3.23 = 731-0) MONO x10^3 (test code 0.60 10*3/uL 0.36-1.02 = 742-7) EOS x10^3 (test code = 0.06 10*3/uL 0.06-0.53 711-2) BASO x10^3 (test code 0.03 10*3/uL 0.01-0.09 = 704-7) Lab Interpretation Abnormal (test code = 36001-8) [facility] with [id number] 09:38:20 Test Item Value Reference Range Interpretation Comments WBC (test code = 8.51 See_Comment [Automated 6690-2) message] The sy stem which generated this result transmitted reference range : 4.20 - 10.70 10*3/?L. The reference range was not used to interpret this result as normal/abnormal . RBC (test code = 3.44 See_Comment L [Automated 789-8) message] The sy stem which generated this result transmitted reference range : 4.26 - 5.52 10*6/?L. The reference range was not used to interpret this result as normal/abnormal . HGB (test code = 9.5 g/dL 12.2-16.4 L 718-7) HCT (test code = 30.6 % 38.4-49.3 L 4544-3) MCV (test code = 89.0 fL 81.7-95.6 787-2) MCH (test code = 27.6 pg 26.1-32.7 785-6) MCHC (test code = 31.0 g/dL 31.2-35.0 L 786-4) RDW-SD (test code = 44.8 fL 38.5-51.6 57371-6) RDW-CV (test code = 13.9 % 12.1-15.4 788-0) PLT (test code = 286 See_Comment [Automated 777-3) message] The sy stem which generated this result transmitted reference range : 150 - 328 10*3/ ?L. The reference r elsi was not used to interpret this result as normal/abnormal . MPV (test code = 9.5 fL 9.8-13.0 L 69312-1) NRBC/100 WBC (test 0.0 See_Comment [Automat ed code = 1037215966) message] The system which generated this result transmitted reference range : 0.0 - 10.0 /100 WBCs. The refer ence range was not u sed to interpret th is result as normal/abnormal . NRBC x10^3 (test code See_Comment [Auto mated = 4781228557) message] The s ystem which generated this result transmitted reference range : 10*3/?L. The reference range was not used to interpret this result as normal/abnormal . GRAN MAT (NEUT) % 57.2 % (test code = 770-8) IMM GRAN % (test code 0.40 % = 1942024995) LYMPH % (test code = 34.2 % 736-9) MONO % (test code = 7.1 % 5905-5) EOS % (test code = 0.7 % 713-8) BASO % (test code = 0.4 % 706-2) GRAN MAT x10^3(ANC) 4.88 10*3/uL 1.99-6.95 (test code = 8754144590) IMM GRAN x10^3 (test 0.03 10*3/uL 0.00-0.06 code = 4532717325) LYMPH x10^3 (test code 2.91 10*3/uL 1.09-3.23 = 731-0) MONO x10^3 (test code 0.60 10*3/uL 0.36-1.02 = 742-7) EOS x10^3 (test code = 0.06 10*3/uL 0.06-0.53 711-2) BASO x10^3 (test code 0.03 10*3/uL 0.01-0.09 = 704-7) Lab Interpretation Abnormal (test code = 44503-4) [facility]"
--- NOTE | 2023-04-07 05:19 | EDPHYS ---
Physician Documentation [facility] Name: Bernard Ranlde Age: 47 yrs Sex: Male : 1975 Arrival Date: 04/07/2023 Time: 05:09 Bed 2 Private MD: ED Physician Jennifer Carbone HPI: 04/07 05:15 This 47 yrs old Male presents to ER via Unassigned with complaints of I have sp3 microscopic bugs on me. 05:15 47-year-old male with no known past medical history presents to the ED via EMS for sp3 sensations of "microscopic bugs on him" that are on him and in him. Patient denies prior symptoms similar to this. He also denies any drug use though he states several years ago he had illicit drug use though none currently. On review of systems, he denies headache, chest pain, shortness of breath, abdominal pain, fever, URI symptoms, or any other signs or symptoms at this time.. Historical: - Allergies: 05:15 No Known Allergies; lg3 - Home Meds: 05:15 None [Active]; lg3 - PMHx: 05:15 None; lg3 - PSHx: 05:15 left leg; lg3 - Immunization history:: Adult Immunizations up to date. - Social history:: Smoking status: Patient reports the use of cigarette tobacco products, smokes one-half pack cigarettes per day, Patient/guardian denies using alcohol, street drugs, but used to use street drugs. ROS: 05:16 Constitutional: Negative for fever, chills, and weight loss, Eyes: Negative for injury, sp3 pain, redness, and discharge, Neck: Negative for injury, pain, and swelling, Cardiovascular: Negative for chest pain, palpitations, and edema, Respiratory: Negative for shortness of breath, cough, wheezing, and pleuritic chest pain, Abdomen/GI: Negative for abdominal pain, nausea, vomiting, diarrhea, and constipation, Back: Negative for injury and pain, MS/Extremity: Negative for injury and deformity, Allergy/Immunology: Negative for hives, rash, and allergies, Endocrine: Negative for neck swelling, polydipsia, polyuria, polyphagia, and marked weight changes, Hematologic/Lymphatic: Negative for swollen nodes, abnormal bleeding, and unusual bruising. 05:16 All other systems are negative. Exam: 05:16 Constitutional: This is a well developed, well nourished patient who is awake, alert, sp3 and in no acute distress. Head/Face: Normocephalic, atraumatic. Eyes: Pupils equal round and reactive to light, extra-ocular motions intact. Lids and lashes normal. Conjunctiva and sclera are non-icteric and not injected. Cornea within normal limits. Periorbital areas with no swelling, redness, or edema. ENT: Nares patent. No nasal discharge, no septal abnormalities noted. External auditory canals are clear. Oropharynx with no redness, swelling, or masses, exudates, or evidence of obstruction, uvula midline. Mucous membranes moist. Neck: Trachea midline, no thyromegaly or masses palpated, and no cervical lymphadenopathy. Supple, full range of motion without nuchal rigidity, or vertebral point tenderness. No Meningismus. Chest/axilla: Normal chest wall appearance and motion. Nontender with no deformity. No lesions are appreciated. Cardiovascular: Regular rate and rhythm with a normal S1 and S2. No gallops, murmurs, or rubs. Normal PMI, no JVD. No pulse deficits. Respiratory: Lungs have equal breath sounds bilaterally, clear to auscultation and percussion. No rales, rhonchi or wheezes noted. No increased work of breathing, no retractions or nasal flaring. Abdomen/GI: Soft, non-tender, with normal bowel sounds. No distension or tympany. No guarding or rebound. No evidence of tenderness throughout. Back: No spinal tenderness. No costovertebral tenderness. Full range of motion. Skin: Warm, dry with normal turgor. Normal color with no rashes, no lesions, and no evidence of cellulitis. MS/ Extremity: Pulses equal, no cyanosis. Neurovascular intact. Full, normal range of motion. Neuro: Awake and alert, GCS 15, oriented to person, place, time, and situation. Cranial nerves II-XII grossly intact. Motor strength 5/5 in all extremities. Sensory grossly intact. Cerebellar exam normal. Normal gait. 05:16 Psych: Patient continues to state that he has these sensations. He denies homicidal ideation, suicidal ideation, feelings of persecution, psychosis, he does not appear to be responding to internal stimuli. . Vital Signs: 05:14 BP 139 / 89; Pulse 90; Resp 17 S; Temp 98.4(O); Pulse Ox 99% on R/A; Weight 90.72 kg lg3 (R); Height 5 ft. 11 in. (R); Pain 0/10; 05:14 Body Mass Index 27.89 (90.72 kg, 180.34 cm) lg3 05:14 Pain Scale: Adult lg3 MDM: 05:12 Patient medically screened. sp3 05:17 Data reviewed: vital signs, nurses notes. ED course: He vehemently denies drug use sp3 however this similar symptoms can be seen with methamphetamine use. He declines to provide urine sample for drug use testing. At this point we will safely discharge him home at this time since he has normal vital signs and a normal physical exam.. Administered Medications: No medications were administered Disposition Summary: 04/07/23 05:18 Discharge Ordered Location: Home sp3 Condition: Stable sp3 Diagnosis - Psychogenic foreign body sensation sp3 Followup: sp3 - With: Private Physician - When: Upon discharge from the Emergency Department - Reason: Continuance of care Discharge Instructions: - Discharge Summary Sheet sp3 - Psychosis sp3 Forms: - Medication Reconciliation Form sp3 - Thank You Letter sp3 - Antibiotic Education sp3 - Prescription Opioid Use sp3 - Patient Portal Instructions sp3 - Leadership Thank You Letter sp3 Signatures: Jaylin Fraser, RN RN lg3 Jennifer Carbone MD MD sp3
--- NOTE | 2023-04-07 05:19 | ER ---
Nurse's Notes [facility] [place] Name: Bernard Randle Age: 47 yrs Sex: Male : 1975 Arrival Date: 04/07/2023 Time: 05:09 Bed 2 Private MD: Diagnosis: Psychogenic foreign body sensation Presentation: 04/07 05:14 Chief complaint: Patient states: i have microscopic bugs all over my house and crawling lg3 inside my body. only i can see them and they are smothering me. Coronavirus screen: Client denies travel out of the [place] in the last 14 days. At this time, the client does not indicate any symptoms associated with coronavirus-19. Ebola Screen: No symptoms or risks identified at this time. Initial Sepsis Screen: Does the patient meet any 2 criteria? No. Patient's initial sepsis screen is negative. Does the patient have a suspected source of infection? No. Patient's initial sepsis screen is negative. Risk Assessment: Do you want to hurt yourself or someone else? Patient reports no desire to harm self or others. Onset of symptoms is unknown. 05:14 Method Of Arrival: EMS: [facility] lg3 05:14 Acuity: NESS 5 lg3 Triage Assessment: 05:15 General: Appears in no apparent distress. comfortable, Behavior is calm, cooperative. lg3 Pain: Denies pain. EENT: No deficits noted. No signs and/or symptoms were reported regarding the EENT system. Reports seeing microscopic bugs in both eyes. Neuro: Hernandez Agitation-Sedation Scale (RASS): 0 - Alert and Calm Level of Consciousness is awake, alert, obeys commands, Oriented to person, place, time. Cardiovascular: No deficits noted. Denies chest pain, shortness of breath, Capillary refill < 3 seconds Clubbing of nail beds is absent JVD is absent Patient's skin is warm and dry. Respiratory: No deficits noted. Airway is patent Respiratory effort is even, unlabored, Respiratory pattern is regular, symmetrical. GI: No deficits noted. No signs and/or symptoms were reported involving the gastrointestinal system. Abdomen is round non-distended. : No deficits noted. No signs and/or symptoms were reported regarding the genitourinary system. Derm: No deficits noted. No signs and/or symptoms reported regarding the dermatologic system. Skin is intact, is healthy with good turgor, Skin is dry, Skin is normal, Skin temperature is warm. Musculoskeletal: No deficits noted. No signs and/or symptoms reported regarding the musculoskeletal system. Circulation, motion, and sensation intact. Range of motion: intact in all extremities. Historical: - Allergies: 05:15 No Known Allergies; lg3 - Home Meds: 05:15 None [Active]; lg3 - PMHx: 05:15 None; lg3 - PSHx: 05:15 left leg; lg3 - Immunization history:: Adult Immunizations up to date. - Social history:: Smoking status: Patient reports the use of cigarette tobacco products, smokes one-half pack cigarettes per day, Patient/guardian denies using alcohol, street drugs, but used to use street drugs. Screenin:18 [facility] ED Fall Risk Assessment (Adult) History of falling in the last 3 months, lg3 including since admission No falls in past 3 months (0 pts). Abuse screen: Denies threats or abuse. Denies injuries from another. Nutritional screening: No deficits noted. Tuberculosis screening: No symptoms or risk factors identified. Assessment: 05:20 General: see triage assessment. lg3 Vital Signs: 05:14 BP 139 / 89; Pulse 90; Resp 17 S; Temp 98.4(O); Pulse Ox 99% on R/A; Weight 90.72 kg lg3 (R); Height 5 ft. 11 in. (R); Pain 0/10; 05:14 Body Mass Index 27.89 (90.72 kg, 180.34 cm) lg3 05:14 Pain Scale: Adult lg3 ED Course: 05:12 Patient arrived in ED. lg3 05:12 Jennifer Carbone MD is Attending Physician. sp3 05:15 Triage completed. lg3 05:15 Arm band placed on right wrist. lg3 05:18 Patient has correct armband on for positive identification. Placed in gown. Bed in low lg3 position. Call light in reach. Side rails up X 1. Client placed on continuous cardiac and pulse oximetry monitoring. NIBP monitoring applied. Door closed. Noise minimized. Warm blanket given. 05:18 Patient maintains SpO2 saturation greater than 95% on room air. lg3 05:20 Jaylin Fraser, BRIEN is Primary Nurse. lg3 05:20 No provider procedures requiring assistance completed. Patient did not have IV access lg3 during this emergency room visit. Administered Medications: No medications were administered Medication: 05:27 VIS not applicable for this client. lg3 Outcome: 05:18 Discharge ordered by . sp3 05:26 Discharged to home ambulatory. lg3 05:26 Condition: stable 05:26 Discharge instructions given to patient, Instructed on discharge instructions, follow up and referral plans. Demonstrated understanding of instructions, follow-up care. 05:27 Patient left the ED. lg3 Signatures: Jaylin Fraser RN RN lg3 Jennifer Carbone MD MD sp3
[2023-04-07 05:32] VITALS: BP 139/89; TEMP 98.4; O2SAT 99
== END 2023-04-07 05:27 | disposition home or self-care (01) ==
LOC: ER 05:09
DX: R20.8 Other disturbances of skin sensation (principal); F17.210 Nicotine dependence, cigarettes, uncomplicated
CPT/HCPCS: 99284